=== PATIENT | male | born 1935 | race Two or more races ===

== ENCOUNTER → 2017-12-17 | Outpatient (CLI) | payer OTHER ==
[~2017-12-17] MED LIST: MOTRIN800 MG PO
== END | disposition home or self-care (01) ==
LOC: TOM 14:54
DX: N40.0 Benign prostatic hyperplasia without lower urinary tract symptoms (principal); F01.50 Vascular dementia, unspecified severity, without behavioral disturbance, psychotic disturbance, mood disturbance, and anxiety

== ENCOUNTER 2020-02-29 09:50 | Outpatient (CLI) | payer OTHER | END 2020-02-29 10:03 | disposition home or self-care (01) | LOC: LAB 09:50 | PROVIDERS: ATTEND Internal Medicine Cardiovascular Disease | DX: E03.8 Other specified hypothyroidism (principal); E78.00 Pure hypercholesterolemia, unspecified ==

== ENCOUNTER 2020-03-19 10:49 | Outpatient (CLI) | payer OTHER | END 2020-03-19 10:59 | disposition home or self-care (01) | LOC: SONOGRAMA 10:49 | PROVIDERS: ATTEND Internal Medicine Cardiovascular Disease | DX: R10.30 Lower abdominal pain, unspecified (principal); N18.6 End stage renal disease ==

== ENCOUNTER 2020-04-27 14:24 | Emergency (ER) | payer OTHER ==
[~2020-04-27] VITALS: Ht 152.4 cm; Wt 73.9 kg
[2020-04-27] MEDS ORDERED: ATORVASTATIN CA10 MG (14:41)
[2020-04-27] MEDS ORDERED: ARICEPT5 MG (14:42)
[2020-04-27] MEDS ORDERED: NASAL MIST126 ML (14:43)
[2020-04-27] MEDS ORDERED: ASPIR 8181 MG (14:43)
[2020-04-27] MEDS ORDERED: DUI500 PO (14:45)
[2020-04-27] MEDS ORDERED: MUPIROCIN1 G1 TOP (14:45)
== END 2020-04-27 14:51 | disposition home or self-care (01) ==
LOC: ER 14:24
DX: S50.812A Abrasion of left forearm, initial encounter (principal); W01.198A Fall on same level from slipping, tripping and stumbling with subsequent striking against other object, initial encounter; Y93.89 Activity, other specified; Y92.89 Other specified places as the place of occurrence of the external cause; Y99.8 Other external cause status

== ENCOUNTER 2021-05-03 09:39 | Outpatient (CLI) | payer OTHER ==
[~2021-05-03 09:39] MED LIST changes: +ARICEPT5 MG; +ASPIR 8181 MG; +ATORVASTATIN CA10 MG; +DUI500 PO; +MUPIROCIN1 G1 TOP; +NASAL MIST126 ML
== END 2021-05-03 09:46 | disposition home or self-care (01) ==
LOC: LAB 09:39 → RAD 09:39 → LAB 09:46
PROVIDERS: ATTEND Internal Medicine
DX: R07.89 Other chest pain (principal); D68.8 Other specified coagulation defects; H25.011 Cortical age-related cataract, right eye; Z98.41 Cataract extraction status, right eye

== ENCOUNTER 2021-05-16 10:15 | Outpatient (CLI) | payer OTHER | END 2021-05-16 10:25 | disposition home or self-care (01) | LOC: PPH VACUNA 10:15 | PROVIDERS: ATTEND Emergency Medicine Pediatric Emergency Medicine | DX: Z23 Encounter for immunization (principal) ==

== ENCOUNTER 2021-12-09 09:00 | Outpatient (CLI) | payer OTHER | END 2021-12-09 09:15 | disposition home or self-care (01) | LOC: PPH VACUNA 09:00 | PROVIDERS: ATTEND Emergency Medicine Pediatric Emergency Medicine | DX: Z23 Encounter for immunization (principal) ==

== ENCOUNTER 2022-06-21 13:34 | Outpatient (CLI) | payer OTHER | END 2022-06-21 13:41 | disposition home or self-care (01) | LOC: LAB 13:34 | DX: U07.1 COVID-19 (principal) ==

== ENCOUNTER 2022-07-17 12:16 | Outpatient (CLI) | payer OTHER | END 2022-07-17 12:24 | disposition home or self-care (01) | LOC: TOM 12:16 | PROVIDERS: ATTEND Psychiatry & Neurology Neurology | DX: I63.3 Cerebral infarction due to thrombosis of cerebral arteries (principal) ==

== ENCOUNTER 2023-01-12 09:27 | Outpatient (CLI) | payer OTHER | END 2023-01-12 09:28 | disposition home or self-care (01) | LOC: LAB 09:27 | PROVIDERS: ATTEND Psychiatry & Neurology Neurology | DX: G40.209 Localization-related (focal) (partial) symptomatic epilepsy and epileptic syndromes with complex partial seizures, not intractable, without status epilepticus (principal); F01.50 Vascular dementia, unspecified severity, without behavioral disturbance, psychotic disturbance, mood disturbance, and anxiety; N39.0 Urinary tract infection, site not specified; Z13.79 Encounter for other screening for genetic and chromosomal anomalies; E78.2 Mixed hyperlipidemia ==

== ENCOUNTER 2023-07-10 12:07 | Outpatient (CLI) | payer OTHER ==
[2023-07-10 13:13] LABS: HEMATOCRIT 41.6 % (39.0-48.0); HEMOGLOBIN 14.5 g/dL (13-16.00); MEAN CELL VOLUME 85.3 fL (80.0-100.00); MEAN CORPUSCULAR HEMOGLOBIN 29.8 pg (27.00-32.0); MEAN CORPUSCULAR HGB CONC 34.9 g/dl (32.0-36.0); PLATELET COUNT 170 K/uL (150-450); RED BLOOD COUNT 4.88 M/uL (4.00-6.00)
[2023-07-10 14:16] LABS: ALBUMIN 3.8 gm/dL (3.4-5.0); BILIRUBIN TOTAL 0.68 mg/dL (0.3-1.2); CALCIUM 9.3 mg/dL (8.5-10.1); CREATININE SERUM 1.89 mg/dL (0.70-1.30); GFR 33.91; POTASSIUM 4.68 mEq/L (3.5-5.1); TOTAL PROTEIN 7.8 gm/dL (6.4-8.2); TSH 1.12 uIU/mL (0.358-3.74)
== END 2023-07-10 12:08 | disposition home or self-care (01) ==
LOC: LAB 12:07
PROVIDERS: ATTEND Internal Medicine Gastroenterology
DX: K59.00 Constipation, unspecified (principal); R10.9 Unspecified abdominal pain

== ENCOUNTER 2023-07-17 11:00 | Outpatient (CLI) | payer OTHER | END 2023-07-17 11:14 | disposition home or self-care (01) | LOC: TOM 11:00 | PROVIDERS: ATTEND Internal Medicine Gastroenterology | DX: K59.00 Constipation, unspecified (principal); R10.9 Unspecified abdominal pain ==